=== PATIENT | male | born 1975 | race Caucasian/White ===

== ENCOUNTER 2023-09-09 19:23 | Emergency (ER) | payer OTHER, SELFPAY ==
[2023-09-09 19:28] VITALS: BP 166/95; BMI 31.4
[2023-09-09 19:47] VITALS: BMI 32.6
--- NOTE | 2023-09-09 19:51 | EDRN ---
Pt has had intermittent RLQ abd pain for past few days. Pt says his saw him bent over earlier and she is concerned pt has a problem with his appendix. Pt denies n/v/d/constipation, urinary symptoms, weakness, dizziness, cp, sob,
fever/chills/cough. Pain described as sharp, stabbing. Pt did not take anything for pain. Walking exacerbates pain. Pt says when he bent over in shower pain increased.
[2023-09-09 19:56] LABS: Urine Albumin Negative (Neg - Trace); Urine Bilirubin Negative (Negative); Urine Character Clear (Clear); Urine Color Yellow; Urine Glucose Negative (Negative); Urine Ketone Negative (Negative); Urine Leukocyte Negative (Negative); Urine Nitrite Negative (Negative); Urine Occult Blood Negative (Negative); Urine Urobilinogen Negative (Neg - 1+)
[2023-09-09 20:04] LABS: % Basophils 0.5 % (0-2); % Eosinophils 2.1 % (0-6); % Immature Granulocytes 0.1 % (0-0.5); % Monocytes 8.6 % (1.7-9.3); % Neutrophils 51.7 % (42.2-75.2); Absolute Eosinophils 0.2 10^3/uL (0-0.7); Absolute Monocytes 0.7 10^3/uL (0.1-0.6); Absolute Neutrophils 4.2 10^3/uL (1.4-6.5); Hematocrit 39.3 % (39.0-52.0); Hemoglobin 14.2 g/dL (13.0-18.0); Mean Corp Hgb Conc. 36.1 g/dL (33.0-37.0); Mean Corpuscular Hgb 28.3 pg (27.0-31.0); Mean Corpuscular Volume 78.4 fL (80.0-94.0); Mean Platelet Volume 9.2 fL (7.4-10.4); Nucleated Red Blood Cells % 0 % (-); Platelet Count 252 10^3/uL (130-400); Red Blood Cell Count 5.01 10^6/uL (4.70-6.10); Red Cell Dist. Width 12.2 % (11.5-14.5); White Blood Cell Count 8.2 10^3/uL (4.8-10.8)
--- NOTE | 2023-09-09 20:08 | ED.GENMED ---
History of Present Illness
<Jony Ruvalcaba MD, Resident - Last Filed: 09/09/23 22:42>
General
Chief Complaint: Abdominal Pain
Time Seen by Provider: 09/09/23 19:50
History of Present Illness
History of Present Illness:
48-year-old male presented to the ED with right lower quadrant pain. Patient stated that pain started on 08/31 5 in the evening. Patient describes pain as stabbing, intermittent without nausea or vomiting. He reports that today the pain was
present constant all day with a pain scale of 6 out of 10. He reports that pain radiates towards his right groin. He he denies B/B difficulties, hematuria or hematochezia . He has no history of gallstones or renal stones. No history of surgeries.
He denies any fever, chills, chest pain, shortness of breath. Patient is a non-smoker, nonalcoholic. He reports that he lifts heavy boxes at work.
Past History
<Jony Ruvalcaba MD, Resident - Last Filed: 09/09/23 22:42>
Past History
ED Past Medical History: Other (Myopericarditis) and Other (Pacs)
ED Past Surgical History: None
Social History
Tobacco: Non-smoker
Alcohol: None
Drug: None
Personal:
Living: with family
Employment: Employed
Family History
Family History: Early CAD (However his father had obesity and smoke. Father had OK at age 39.)
Review of Systems
<Jony Ruvalcaba MD, Resident - Last Filed: 09/09/23 22:42>
Review of Systems
ABD/GI: Reports abdominal pain
Phy Exam
<Jony Ruvalcaba MD, Resident - Last Filed: 09/09/23 22:42>
General Physical Exam
General Presentation: well appearing and no apparent distress
Cardiovascular Exam
Cardiovascular Exam: regular rate/rhythm
Pulmonary Exam
Pulmonary Exam: lungs clear
Gastrointestinal Exam
Gastrointestinal Exam: normal bowel sounds, soft, non distended and tender (Right lower quadrant above the iliac crest, guarding present, no rebound tenderness)
Neurological Exam
Neurological Exam: alert and oriented x3
Course
<Jony Ruvalcaba MD, Resident - Last Filed: 09/09/23 22:42>
Orders/Labs/Results
Orders:
Orders
09/09/23 19:49
Urinalysis Reflex To Culture Urgent
Date Specimen was Collected: 09/09/23
Time Specimen was Collected: 19:46
09/09/23 19:53
IV Insert/Care/Rem.- Treatment PRN
09/09/23 19:58
Complete Blood Count/With Diff Urgent
Comprehensive Metabolic Panel Urgent
Lipase Urgent
09/09/23 20:15
CT Abd/pelvis W Iv Cont Urgent
Comment:
Reason For Exam: RLQ pain radiates to right groin
09/09/23 22:38
Ketorolac [Toradol] 30 mg IV NOW STA
Abnormal Lab Results
09/09/23
19:58
MCV 78.4 L fL
(80.0-94.0)
Absolute Monos (auto) 0.7 H 10^3/uL
(0.1-0.6)
Glucose 103 H mg/dl
(70-99)
ALT 72 H U/L
(0-50)
09/09/23 19:58
09/09/23 19:58
Vital Signs
Initial and Last Documented VS:
Initial Vital Signs
Temp Pulse Resp BP Pulse Ox
98.2 F 79 16 166/95 97
09/09/23 19:28 09/09/23 19:28 09/09/23 19:28 09/09/23 19:28 09/09/23 19:28
Last Documented Vital Signs
Temp Pulse Resp BP Pulse Ox
98.8 F 70 16 126/70 97
09/09/23 21:00 09/09/23 21:00 09/09/23 21:00 09/09/23 21:00 09/09/23 21:00
<Evan Mallory, DO - Last Filed: 09/09/23 22:39>
Orders/Labs/Results
Orders:
Orders
09/09/23 19:49
Urinalysis Reflex To Culture Urgent
Date Specimen was Collected: 09/09/23
Time Specimen was Collected: 19:46
09/09/23 19:53
IV Insert/Care/Rem.- Treatment PRN
09/09/23 19:58
Complete Blood Count/With Diff Urgent
Comprehensive Metabolic Panel Urgent
Lipase Urgent
09/09/23 20:15
CT Abd/pelvis W Iv Cont Urgent
Comment:
Reason For Exam: RLQ pain radiates to right groin
09/09/23 22:38
Ketorolac [Toradol] 30 mg IV NOW STA
Abnormal Lab Results
09/09/23
19:58
MCV 78.4 L fL
(80.0-94.0)
Absolute Monos (auto) 0.7 H 10^3/uL
(0.1-0.6)
Glucose 103 H mg/dl
(70-99)
ALT 72 H U/L
(0-50)
09/09/23 19:58
09/09/23 19:58
Vital Signs
Initial and Last Documented VS:
Initial Vital Signs
Temp Pulse Resp BP Pulse Ox
98.2 F 79 16 166/95 97
09/09/23 19:28 09/09/23 19:28 09/09/23 19:28 09/09/23 19:28 09/09/23 19:28
Last Documented Vital Signs
Temp Pulse Resp BP Pulse Ox
98.8 F 70 16 126/70 97
09/09/23 21:00 09/09/23 21:00 09/09/23 21:00 09/09/23 21:00 09/09/23 21:00
<Jony Ruvalcaba MD, Resident - Last Filed: 09/09/23 22:42>
*Critical Care Note
Total Time (30-74mins, 75-104mins- exclusive of procedures): Not Applicable
<Jony Ruvalcaba MD, Resident - Last Filed: 09/09/23 22:42>
Update Note
Update Note:
48-year-old male presented to the ED with right lower quadrant pain radiating to right groin. On physical exam tenderness is present above the iliac crest on the right side, with guarding, no rebound tenderness.
Differential diagnosis #1 acute appendicitis #2 bowel obstruction less likely #3 musculoskeletal pain #4 acute pancreatitis
Will do CBC, CMP, lipase, CT scan of the abdomen/pelvis with IV contrast.
CT scan of the abdomen/pelvis shows fatty liver infiltration. No enlargement of the appendix. Hepatosplenomegaly seen on CT scan. No evidence of bowel obstruction.
Lipase levels are normal. Patient is stable for discharge home. Advised patient not to lift heavy boxes for a couple days, motrin as needed for pain. 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 Follow-up with family doctor
CT scan of the abdomen/pelvis :
FINDINGS: CT of the abdomen and pelvis is performed with intravenous contrast and without oral contrast, per the emergency department CT protocol.
Mild dependent atelectasis in the posterior lower lungs.
Thin linear density within the inferior and medial aspect of the right middle lobe, new from previous CT examination, most likely representing linear scarring, although could also be a linear atelectasis.
There is no significant pleural or pericardial effusion.
The appendix appears normal. There is no evidence for bowel obstruction. General limitation of a lack of GI luminal contrast agent, no gross evidence for bowel wall thickening. There are colonic diverticula with no convincing CT evidence for
diverticulitis.
No focal abnormality of the gallbladder with no evidence for biliary ductal dilation.
The liver is enlarged with craniocaudal dimension of 18.7 cm. Fatty infiltration of the liver. No evidence of a focal hepatic lesion. The main portal vein and its branches appear patent as well as the SMV and the splenic vein. The hepatic veins are
patent.
The spleen is slightly enlarged with maximum dimension of 13.4 cm. No evidence of a focal splenic lesion.
Both adrenal glands appear within normal limits. The pancreas appears normal.
There is a 1.3 cm cyst arising exophytically from the posterior upper right kidney, unchanged. No other focal abnormality of the kidneys. The visualized pelvicalyceal systems and ureters appear normal. No abnormality of the bladder.
Mild vascular calcification with no aortic aneurysm. There are no significantly enlarged abdominal or pelvic lymph nodes.
Mild to moderate degenerative change of the sacroiliac joints with anterior spurring. Changes of degenerative disc disease, greatest at L5-S1. Vacuum disc phenomenon at L4-5 and L5-S1. Foraminal narrowing which appears greatest on the left at L5-S1
and on the right at L4-5. Mild degenerative change of both hip joints. Mild degenerative changes symphysis pubis. Mild levoconvex scoliosis centered over the lower lumbar spine.
IMPRESSION: The appendix appears normal. No evidence for bowel obstruction. Colonic diverticula with no CT evidence for diverticulitis.
Mild hepatic and splenic enlargement. Fatty infiltration of the liver.
Bony degenerative changes as described
ED Attending Note
<Jony Ruvalcaba MD, Resident - Last Filed: 09/09/23 22:42>
-
Portions of this chart may have been created with voice recognition software.� Occasional wrong word or��sound alike� substitutions may have occurred due to the inherent limitations of voice recognition software.
<Evan Mallory DO - Last Filed: 09/09/23 22:39>
ED Attending Note
Patient seen and examined by attending physician: Yes
I performed a history and physical exam of patient and discussed management with resident, I reviewed resident's note and agree with documented findings and plan of care.: Yes
ED Attending Note:
Seen with resident and examined independently agree with assessment and plan 48-year-old male very low abdominal pain somewhat worse with movement labs and CAT scan noted some perhaps musculoskeletal, perhaps coming from his back he has no fever
abdomen is soft and nontender will discharge with nonsteroidals
Discharge Plan
Departure
Patient Disposition: Home (Routine Discharge)
Date of Disposition: 09/09/23
Time of Disposition: 22:38
Patient with high blood pressure during this ER visit?: No
Discharge Problem:
Musculoskeletal pain
Instructions: Abdominal Muscle Strain ED, Musculoskeletal Pain
Prescriptions:
No Action
No Current Medications
0
Referrals:
UNKNOWN - PT DOES,NOT KNOW [Family Provider] -
Interventions
Interventions:
*Risk Screen - Suicide Last Done: 09/09/23 19:28
*General Assessment Last Done: 09/09/23 19:47
*Neglect/Abuse Screening Last Done: 09/09/23 19:28
ED- Fall Risk Assessment Last Done: 09/09/23 19:28
*ED COVID-19 Vaccine History Last Done: 09/09/23 19:47
SE-Wbtblw-Dijumavisg Assessment Last Done: 09/09/23 20:01
Discharge Date and Time
Print Language: GREEK
[2023-09-09 20:16] LABS: ALT (SGPT) 72 U/L (0-50); AST (SGOT) 37 U/L (17-59); Albumin 4.6 g/dl (3.5-5.0); Alkaline Phosphatase 55 U/L (38-126); Blood Urea Nitrogen 16 mg/dl (9-20); Calcium 9.8 mg/dl (8.4-10.2); Carbon Dioxide 27 mmol/L (22-30); Chloride 106 mmol/L (98-107); Estimated Creatinine Clearance 103 ml/min; Glucose 103 mg/dl (70-99); Lipase 56 U/L (23-300); Sodium 138 mmol/L (135-145); Total Bilirubin 0.5 mg/dl (0.2-1.3); Total Protein 7.1 g/dl (6.3-8.2); eGFR > 60.00
[2023-09-09 21:00] VITALS: BP 126/70
[2023-09-09 22:44] VITALS: BP 130/72
[2023-09-09] MEDS: TORADOL 30 MG IV (22:45)
== END 2023-09-09 22:52 | disposition home or self-care (01) ==
LOC: EMR 19:23
PROVIDERS: EMERGENCY PHYSICIAN Emergency Medicine
DX: M79.18 Myalgia, other site (principal); Z82.49 Family history of ischemic heart disease and other diseases of the circulatory system; Z83.49 Family history of other endocrine, nutritional and metabolic diseases
CPT/HCPCS: 99284; 96374; 74177; 80053; 81003; 83690; 85025; Q9967